=== PATIENT | male | born 1985 | race Caucasian/White ===

== ENCOUNTER 2024-07-31 17:09 | Emergency (ER) | payer BC, SELFPAY ==
--- NOTE | ~2024-07-31 | CT_ITS ---
CLINICAL HISTORY: right flank pain CT abdomen and pelvis without contrast Comparison: None Findings: No consolidation of the imaged lung bases. Mild-moderate right hydroureteronephrosis secondary to 0.4 cm stone at the right ureterovesicular junction. Additional calcifications in the pelvis are likely due to phleboliths. No obstructing stone of the left kidney or left ureter. Bilateral perinephric stranding is noted. The adrenal glands are normal. The spleen is nonenlarged. Mild stranding about pancreas, celiac axis, and mesentery is nonspecific. Mild previous pancreatitis is considered. Liver and gallbladder are unremarkable for noncontrast CT. Small mesenteric and periaortic lymph nodes are nonspecific and likely reactive. No small bowel obstruction. The appendix is gas-filled and nondilated. Moderate to severe stool burden is present, including the cecum. Prostate gland measures 5 cm transverse. Wall thickening of the urinary bladder is mild and nonspecific with underdistention of the bladder at the time of the imaging. Subcutaneous edema is noted dependently. Coccyx deformity appears old. Multilevel Schmorl's nodes are noted. Degenerative changes include hips and lumbar spine. IMPRESSION: 1. 0.4 cm stone of the right ureterovesicular junction with mild-moderate right hydroureteronephrosis. 2. Mild fluid of the upper abdomen is nonspecific. Mild pancreatitis is considered. This document has been electronically signed by: Darius Robles MD on 07/31/2024 18:59:34
[2024-07-31 17:32] VITALS: BP 128/83; PULSE 59; RESP 20; TEMP 35.8; O2SAT 97; BMI 28.2
--- NOTE | 2024-07-31 17:49 | ED.ABDPAIN ---
HPI - Abdominal Pain General Chief Complaint: Abdominal Pain Stated Complaint: right side intense pain/kidney stone? Time Seen by Provider: 08/01/24 04:35 Source: patient Mode of arrival: ambulatory Limitations: no limitations History of Present Illness ED Provider: Dr. nAca Armstrong HPI narrative: Patient comes to the emergency room complaining of right-sided flank pain for a few hours prior to arrival. Patient states that he has never passed kidney stones before. Denies hematuria or dysuria, denies fever chills. Denies nausea vomiting or diarrhea. Related Data Previous Rx's ?Medication ?Instructions ?Recorded ketorolac 10 mg tablet 10 mg PO TID PRN pain 5 days #15 08/01/24 tabs ondansetron HCl 4 mg tablet 4 mg PO Q6H PRN nausea and 08/01/24 vomiting #14 tabs prednisone 10 mg tablet 10 mg PO DAILY #3 tabs 08/01/24 tamsulosin 0.4 mg capsule 0.4 mg PO DAILY #14 caps 08/01/24 Allergies Allergy/AdvReac Type Severity Reaction Status Date / Time No Known Allergies Allergy Verified 07/31/24 17:34 Review of Systems Review of Systems Constitutional : No Weight loss, No Fever, No Chills, No Night Sweats, No Fatigue, No Malaise ENT/Mouth : No Hearing loss, No Ear Pain, No Nasal Congestion, No Sinus Pain, No Hoarseness, No sore throat, No Rhinorrhea, No Swallowing Difficulty Eyes: No Eye Pain, No Swelling, No Redness, No Foreign Body, No Discharge, No Vision Changes Cardiovascular : No Chest Pain, No SOB, No Dyspnea on Exertion, No Orthopnea, No Edema, No Palpitations Respiratory : No Cough, No Sputum, No Wheezing, No Smoke Exposure, No Dyspnea Gastrointestinal : No Nausea, No Vomiting, No Diarrhea, No Constipation, No abdominal Pain, No Hematochezia, No Melena Genitourinary : no irregular bleeding, No Dysuria, No Urinary Frequency, No Hematuria, No Urinary Incontinence, No Urgency, complaining of right-sided Flank Pain, No Urinary Flow Changes, No Hesitancy Musculoskeletal : No joint pain, No Myalgias, No Joint Swelling Skin : No Skin Lesions, No rash Neuro : No Weakness, No Numbness, No Paresthesias, No Loss of Consciousness, No Dizziness, No Headache Psych : No Anxiety/Panic, No Depression, No SI/HI/AH/VH, No Social Issues, Heme/Lymph: No Bruising, No Bleeding,No Lymphadenopathy Endocrine : No Polyuria, No Polydipsia, No Temperature Intolerance [facility] Social History Social History Smoked in Last 30 Days: No Substance Use Type: Marijuana Substance Use Frequency: Socially Advance Directives: No Advance Directives Information Provided: No Do you have a plan to hurt others: No Plan Physical Exam ED Vital Signs: Vital Signs - 24 hr 07/31/24 17:32 08/01/24 00:10 08/01/24 02:23 Temperature 96.5 F L 97.8 F 98.7 F Pulse Rate 59 90 72 Respiratory Rate 20 12 20 Blood Pressure 128/83 125/75 112/69 Pulse Oximetry 97 96 98 Oxygen Delivery Method Room Air Room Air Room Air BMI result Body Mass Index 28.2 Const Other: Appearance: Alert. Oriented X3. No acute distress. Eyes: Pupils equal, round and reactive to light. ENT: Pharynx normal. Neck: Normal inspection. Neck supple. No lymph nodes noted. No crepitus CVS: Normal heart rate and rhythm. Pulses normal. Normal S1 and S2 Respiratory: No respiratory distress. Breath sounds normal. No Wheezing. No rales Abdomen: Soft and nontender. No rigidity. No distention. Skin: Skin warm and dry. Normal skin color. Normal skin turgor. Extremities: No lower extremity edema. No Lacerations. No Rash Neuro: Oriented X 3. No motor deficit. No sensory deficit. Moving all extremities. No slurred speech. CN 2 through 12 grossly intact Psych: calm, cooperative, normal affect Course Course Course Narrative: This is a Rapid Medical Examination (RME) performed by Shelby Johnson PA-C in triage. Full HPI, ROS, assessment and treatment plan per primary provider in the Main ED. 39 yo male here for eval of right flank pain x2-3 hours. assoc nausea w/o vomiting. no hx of renal stones. no urinary sx. Plan: labs, UA Medical Decision Making Medical Decision Making MDM Narrative: Patient's white blood cell count 17.5, no source of infection, normal chemistry, UA negative for UTI. Patient has no URI symptoms. Likely reactive leukocytosis. Sepsis not suspected. CT scan shows a 0.4 cm right UVJ stone. Patient states that for the last 6 hours he has had no pain at all. However, it still likely to move while transitioning to the bladder. Patient received a dose of IM ketorolac. Patient will follow-up with urology. Differential Diagnosis Differential Diagnoses: The differential diagnosis associated with the presentation includes (Pyelonephritis, kidney stone) Lab Data MDM Lab Attestation statement: I reviewed the patient's lab results. 07/31/24 17:50 07/31/24 17:50 Labs: Lab Results 07/31/24 Range/Units 17:50 WBC 17.5 H (4.8-10.8) X10*3/uL RBC 5.77 (4.60-5.80) X10*6/uL Hgb 17.0 (14.0-18.0) g/dl Hct 47.4 (42.0-52.0) % MCV 82.1 (80.0-98.0) fL MCH 29.5 (27.0-33.0) pg MCHC 35.9 (31.0-36.0) g/dl RDW 12.4 (11.0-16.0) % Plt Count 303 (160-400) X10*3/uL MPV 9.4 (9.4-12.4) fL Immature Gran % (Auto) 0.5 H (0.0-0.4) % Neut % (Auto) 84.0 H (45-73) % Lymph % (Auto) 9.6 L (20-40) % [place] % (Auto) 5.2 (2-11) % Eos % (Auto) 0.2 (0-4) % Baso % (Auto) 0.5 (0-2) % Lymph # (Auto) 1.7 (1.2-4.9) X10*3/uL [place] # (Auto) 0.9 (0.1-1.2) X10*3/uL Eos # (Auto) 0.0 (0.0-0.4) X10*3/uL Baso # (Auto) 0.1 (0.0-0.2) X10*3/uL Abs Immat Gran (auto) 0.08 H (0.00-0.03) X10*3/uL Absolute Neuts (auto) 14.7 H (2.0-8.3) x10*3/uL Absolute Nucleated RBC 0.000 (0.0-0.012) X10*3/uL Nucleated RBC % (auto) 0.0 (0.0-0.2) /100WBC Sodium 139 (135-145) mmol/L Potassium 4.0 (3.3-5.1) mmol/L Chloride 107 (96-108) mmol/L Carbon Dioxide 24 (22-29) mmol/L Anion Gap 12 (12-20) BUN 12 (9-16) mg/dL Creatinine 0.84 (0.5-1.4) mg/dL Estim Creat Clear Calc 143.3 Estimated GFR > 60 Random Glucose 153 H (60-115) mg/dL Calcium 9.2 (8.4-10.2) mg/dL Total Bilirubin 0.8 (0.0-1.0) mg/dL AST 37 (5-37) U/L ALT 66 H (0-40) U/L Alkaline Phosphatase 95 (39-117) U/L Total Protein 8.0 (6.5-8.0) g/dL Albumin 4.6 (3.5-5.0) g/dL Lipase 12 (8-78) U/L Urine Color Dark Yellow Urine Appearance Cloudy Urine pH 5.5 (5.0-9.0) Ur Specific [place] 1.020 (1.005-1.025) Urine Protein 30 (1+) H (Neg-Trace) mg/dL Urine Glucose (UA) Negative (Negative) mg/dL Urine Ketones Negative (Negative) mg/dL Urine Blood Large (3+) H (Negative) Urine Nitrite Negative (Negative) Ur Leukocyte Esterase Negative (Negative) Urine RBC >20 H (0-2) /HPF Urine WBC 0-5 (0-5) /HPF Ur Squamous Epith Cells 3-5 (0-2) /HPF Urine Bacteria None Seen (None Seen) Hyaline Casts 11-20 (0-2) /LPF Influenza Type A (PCR) NEGATIVE (Negative) Influenza Type B (PCR) NEGATIVE (Negative) RSV RNA Qual (PCR) NEGATIVE (Negative) SARS-CoV-2 RNA (RT-PCR) NEGATIVE (Negative) Independent Interpretation I performed an independent interpretation of an: CT Scan Radiology Impression Discussion of test interpretation with radiology: I have reviewed the radiologist's reading. Radiologist Impression: No consolidation of the imaged lung bases. Mild-moderate right hydroureteronephrosis secondary to 0.4 cm stone at the right ureterovesicular junction. Additional calcifications in the pelvis are likely due to phleboliths. No obstructing stone of the left kidney or left ureter. Bilateral perinephric stranding is noted. The adrenal glands are normal. The spleen is nonenlarged. Mild stranding about pancreas, celiac axis, and mesentery is nonspecific. Mild previous pancreatitis is considered. Liver and gallbladder are unremarkable for noncontrast CT. Small mesenteric and periaortic lymph nodes are nonspecific and likely reactive. No small bowel obstruction. The appendix is gas-filled and nondilated. Moderate to severe stool burden is present, including the cecum. Prostate gland measures 5 cm transverse. Wall thickening of the urinary bladder is mild and nonspecific with underdistention of the bladder at the time of the imaging. Subcutaneous edema is noted dependently. Coccyx deformity appears old. Multilevel Schmorl's nodes are noted. Degenerative changes include hips and lumbar spine. IMPRESSION: 1. 0.4 cm stone of the right ureterovesicular junction with mild-moderate right hydroureteronephrosis. 2. Mild fluid of the upper abdomen is nonspecific. Mild pancreatitis is considered. Critical Care Time Critical Care Time Critical Care Time: Yes Total Critical Care Time: 35 Attestation: I have personally provided critical care time. Time includes review of lab data, radiology results, discussion with consultants, and monitoring for potential decompensation. Intervention performed as documented. Discharge Plan Discharge Clinical Impression: Kidney stone Patient Disposition: Home, Self-Care Instructions: Kidney Stones (ED) Additional Instructions: Please follow-up with your primary care physician tomorrow. If you have any worsening or new symptoms, please return to the emergency room or call 911 Prescriptions: New ketorolac 10 mg tablet 10 mg PO TID PRN (Reason: pain) 5 Days Qty: 15 0RF ondansetron HCl 4 mg tablet 4 mg PO Q6H PRN (Reason: nausea and vomiting) Qty: 14 0RF prednisone 10 mg tablet 10 mg PO DAILY Qty: 3 0RF tamsulosin 0.4 mg capsule 0.4 mg PO DAILY Qty: 14 0RF Referrals: Angelia Koehler MD [Physician] - 08/06/24 Print Language: Citizen [place]
[2024-07-31 17:57] LABS: MANUAL DIFF FLAG NO
[2024-07-31 17:58] LABS: Basophils Absolute Auto 0.1 X10*3/uL (0.0-0.2); Basophils Percent Auto 0.5 % (0-2); Eosinophils Percent Auto 0.2 % (0-4); Hematocrit 47.4 % (42.0-52.0); Imm Gran Abs Auto 0.08 X10*3/uL (0.00-0.03); Imm Gran Pct Auto 0.5 % (0.0-0.4); Lymphocytes Absolute Auto 1.7 X10*3/uL (1.2-4.9); Lymphocytes Percent Auto 9.6 % (20-40); Mean Corpuscular HGB Conc 35.9 g/dl (31.0-36.0); Mean Corpuscular Hemoglobin 29.5 pg (27.0-33.0); Mean Corpuscular Volume 82.1 fL (80.0-98.0); Mean Platelet Volume 9.4 fL (9.4-12.4); Monocytes Absolute Auto 0.9 X10*3/uL (0.1-1.2); Monocytes Percent Auto 5.2 % (2-11); Neutrophils Absolute Auto 14.7 x10*3/uL (2.0-8.3); Platelet Count 303 X10*3/uL (160-400); Red Blood Count 5.77 X10*6/uL (4.60-5.80); Red Cell Distribution Width 12.4 % (11.0-16.0); White Blood Count 17.5 X10*3/uL (4.8-10.8)
[2024-07-31 17:59] LABS: Appearance Urine Cloudy; Color Urine Dark Yellow; Glucose Urine UA Negative (Negative); Leukocyte Esterase Urine Negative (Negative); Nitrite Urine Negative (Negative); PH 5.5 (5.0-9.0); UMIC TRIGGER UACC YES; Urine Blood Large (3+) (Negative); Urine Ketones Negative (Negative); Urine Protein 30 (1+) mg/dL (Neg-Trace)
[2024-07-31 18:11] LABS: Alanine Aminotransferase 66 U/L (0-40); Albumin Level 4.6 g/dL (3.5-5.0); Alkaline Phosphatase 95 U/L (39-117); Anion Gap 12 (12-20); Aspartate Amino Transferase 37 U/L (5-37); Bacteria Urine None Seen (None Seen); Bilirubin Total 0.8 mg/dL (0.0-1.0); Blood Urea Nitrogen 12 mg/dL (9-16); Calcium 9.2 mg/dL (8.4-10.2); Carbon Dioxide 24 mmol/L (22-29); Chloride 107 mmol/L (96-108); Creatinine Clr Calc Pharmacy 143.3; Estimated Glomerular Filt Rate > 60; Glucose Random 153 mg/dL (60-115); Lipase 12 U/L (8-78); RBC Urine >20 /HPF (0-2); Sodium 139 mmol/L (135-145); WBC Urine 0-5 /HPF (0-5)
[2024-07-31 18:34] LABS: Influenza A PCR NEGATIVE (Negative); Influenza B PCR NEGATIVE (Negative); Resp Syncy Virus RNA Qual PCR NEGATIVE (Negative); SARS COV2 PCR INHOUSE NEGATIVE (Negative)
[2024-08-01 00:10] VITALS: BP 125/75; PULSE 90; RESP 12; TEMP 36.6; O2SAT 96
[2024-08-01 02:23] VITALS: BP 112/69; PULSE 72; RESP 20; TEMP 37.1; O2SAT 98
--- NOTE | 2024-08-01 02:33 | PC.NURSE ---
pt resting in bed, vitals taken, pt awaiting to see provider.
[2024-08-01] MEDS: Ketorolac Tromethamine 60 MG/2 ML VIAL IM (04:53)
[2024-08-01 04:57] VITALS: BP 123/70; PULSE 76; RESP 16; TEMP 36.4; O2SAT 98
--- NOTE | 2024-08-01 04:57 | PC.NURSE ---
Medicated per Mar, reviewed discharge instruction with pt. pt verbalized understanding. no sign of distress upon discharge, pt had a steady gait.
[2024-08-01 04:58] VITALS: BP 123/70; PULSE 76; RESP 16; TEMP 36.4; O2SAT 98
== END 2024-08-01 04:58 | disposition home or self-care (01) ==
PROVIDERS: Physician Assistant Medical; Emergency Provider Emergency Medicine; PCP Family Medicine
DX: N13.2 Hydronephrosis with renal and ureteral calculous obstruction (principal); Z03.818 Encounter for observation for suspected exposure to other biological agents ruled out
CPT/HCPCS: 0241U; 74176; 80053; 81001; 83690; 85025; 96372; 99284; J1885

== ENCOUNTER → 2024-07-31 18:20 | Outpatient (BNV) | payer BC, SELFPAY | PROVIDERS: PCP Family Medicine; Visit Provider Radiology Neuroradiology | DX: R10.31 Right lower quadrant pain (principal) | CPT/HCPCS: 74176 ==

== ENCOUNTER 2024-10-22 15:16 | Outpatient (AMB) | payer BC, SELFPAY ==
--- OUTSIDE RECORDS SUMMARY | 2024-10-22 15:19 | XMS_ITS | Clinical Summary ---
Author Organization [facility] Address [address] [place] [address] Care Team Providers Care Lumber Sticker Name Role Phone Bo Almaraz MD Primary Care Provider [phone] Social History Tobacco Use Types Packs/Day Years Used Date Smoking Tobacco: Never Assessed Sex and Gender Information Value Date Recorded Sex Assigned at Not on file Legal Sex Male 4:23 PM EDT Gender Identity Not on file Sexual Orientation Not on file Plan of Treatment Health Maintenance Due Date Last Done Comments Hepatitis C Virus Screening 1984 HIV Screening 1997 DTaP/Tdap/Td Vaccines (1 - Tdap) 2003 Hepatitis B Vaccines (1 of 3 - 19+ 3-dose series) 2003 Influenza Vaccine 02/05/2024 COVID-19 Vaccine ( - 2023-2 5 season) 2024 HPV Vaccines Aged Out No longer eligi ble based on patient's age to complete this topic Pneumococcal Vaccine: Pediat guero (0-5 Years) and At-Risk Patients (6 to 49 Years) Aged Out No longer eligible b ased on patient's age to complete this topic Insurance [facility] PPO Care Teams Lumber Sticker Relationship Specialty Start Date End Date Bo Almaraz MD [address] [place] [address] PCP - General Family Medicine 09/04/16
--- NOTE | 2024-10-22 15:20 | MHC.OFFVIS ---
Intake Visit Reasons: Kidney Stones Intake Note: Pt presents to the office today for a new patient visit for kidney stones. Allergies No Known Allergies Allergy (Verified 10/22/24 15:20) [facility] Medical History (Updated 10/22/24 @ 15:44 by Duncan Ricardo MD) Kidney stone Social History Substance Use Type: Marijuana Results AMB Urinalysis, Automated UA Leukoctes 0 Myranda/uL Last Edit by Tori Shore CMA on 10/22/24 15:30 UA Nitrite Negative Last Edit by Tori Shore CMA on 10/22/24 15:30 UA Urobilinogen 1 mg/dL Last Edit by Tori Shore CMA on 10/22/24 15:30 UA Protein 15 mg/dL Last Edit by Tori Shore CMA on 10/22/24 15:30 UA pH 6.0 Last Edit by Tori Shore CMA on 10/22/24 15:30 UA Blood 0 Zack/uL Last Edit by Tori Shore CMA on 10/22/24 15:30 UA Specific [place] 1.025 Last Edit by Tori Shore CMA on 10/22/24 15:30 UA Ketone Negative Last Edit by Tori Shore CMA on 10/22/24 15:30 UA Bilirubin 1 mg/dL Last Edit by Tori Shore CMA on 10/22/24 15:30 UA Glucose 0 mg/dL Last Edit by Tori Shore CMA on 10/22/24 15:30 Results Reviewed Results Reviewed: Laboratory Last Values Urine pH (Auto) 6.0 10/22/24 15:28 Specific [place] (Auto) 1.025 10/22/24 15:28 Urine Protein (Auto) 15 mg/dL 10/22/24 15:28 Glucose (UA)(Auto) 0 mg/dL 10/22/24 15:28 Urine Ketones (Auto) Negative 10/22/24 15:28 Urine Blood (Auto) 0 Zack/uL 10/22/24 15:28 Urine Nitrite (Auto) Negative 10/22/24 15:28 Urine Bilirubin (Auto) 1 mg/dL 10/22/24 15:28 Urine Urobilinogen (Auto) 1 mg/dL 10/22/24 15:28 Leukocyte Esterase (Auto) 0 Myranda/uL 10/22/24 15:28 Assessment & Plan Assessment & Plan (1) Kidney stone: Code(s): N20.0 - Calculus of kidney Category: Medical Orders: Orders AMB Urinalysis Automated Today Z13.9 - Encounter for screening, unspecified Medications: Discontinued ketorolac Discontinued Reason: Patient no longer taking 10 mg PO TID 5 days PRN 15 tabs 0RF pain ondansetron HCl Discontinued Reason: Patient no longer taking 4 mg PO Q6H PRN 14 tabs 0RF nausea and vomiting prednisone Discontinued Reason: Patient no longer taking 10 mg PO DAILY 3 tabs 0RF tamsulosin Discontinued Reason: Patient no longer taking 0.4 mg PO DAILY 14 caps 0RF Coding Diagnoses Kidney stone N20.0
== END 2024-10-22 15:46 | disposition home or self-care (01) ==
LOC: HO.HUSH 15:17
PROVIDERS: PCP Family Medicine; Visit Provider Urology
DX: Z13.9 Encounter for screening, unspecified (principal)

== ENCOUNTER → 2024-10-22 15:16 | Outpatient (BNVA) | payer BC, SELFPAY | PROVIDERS: PCP Family Medicine; Visit Provider Urology | DX: Z87.442 Personal history of urinary calculi (principal) | CPT/HCPCS: 81003 ==